=== PATIENT | female | born 1990 | race Caucasian/White ===

== ENCOUNTER 2016-06-25 17:26 | Emergency (ER) | payer OTHER ==
[2016-06-25 17:14] LABS: INFLUENZA A NEG (NEG); INFLUENZA B NEG (NEG)
[2016-06-25 17:25] LABS: URINE APPEARANCE HAZY; URINE BILIRUBIN NEG (NEG); URINE BLOOD TRACE-INTACT (NEG); URINE COLOR YELLOW; URINE KETONE TRACE (NEG); URINE LEUKOCYTE ESTERASE NEG (NEG); URINE NITRATE POS (NEG); URINE PROTEIN TRACE (NEG); URINE SPECIFIC GRAVITY 1.015 (1.003-1.035); URINE UROBILINOGEN 0.2 MG/DL (NORM)
[2016-06-25 17:26] LABS: URINE GLUCOSE 50 MG/DL (NORM)
[~2016-06-25 17:26] MED LIST: ALBUTEROL17 GM INH; BACTRIM DS TABL1 TA1 PO; CIPRO PO; DARVOCET-N 1001 TAB PO; DIFLUCAN PO; HYDROCODON-ACE1 EAC9 PO; IBUPROFEN600 MG PO; MACROBID100 MG PO; MEDROL PO; METHADONE; METHADONE PO; MONISTAT VG; NAPROSYN375 MG PO; NO MEDICATIONS; PHENERGAN PO; PHENERGAN PR; PHENERGAN25 MG PO; PREDNISONE PO; PYRIDIUM PO; PYRIDIUM100 MG PO; ROBITUSSIN15 MG PO; TESSALON PEARLS PO; VOLTAREN50 MG PO; ZITHROMAX PO; ZITHROMAX500 MG PO; ZOFRAN ODT4 MG PO
[2016-06-25 17:27] LABS: MICRO INDICATED? YES
[2016-06-25 17:28] LABS: URINE SOURCE CLEAN CATCH
[2016-06-25 17:29] LABS: CULTURE INDICATED? YES; URINE BACTERIA 4+ (NEG); URINE RBC 0-2 /[HPF] (0-2); URINE SQUAMOUS EPITHELIAL CELL MODERATE /[HPF]
== END 2016-06-25 17:50 | disposition home or self-care (01) ==
LOC: SED 17:26
PROVIDERS: Physician Assistant
DX: J02.9 Acute pharyngitis, unspecified (principal); N30.90 Cystitis, unspecified without hematuria; Z90.49 Acquired absence of other specified parts of digestive tract; F17.210 Nicotine dependence, cigarettes, uncomplicated
CPT/HCPCS: 81003; 84703; 87086; 87088; 87186; 87804; 87880; 99283

== ENCOUNTER 2016-10-05 15:35 | Emergency (ER) | payer OTHER ==
[2016-10-05 16:24] LABS: URINE SOURCE CLEAN CATCH
[2016-10-05 16:31] LABS: URINE APPEARANCE CLOUDY; URINE BILIRUBIN NEG (NEG); URINE BLOOD TRACE (NEG); URINE COLOR YELLOW; URINE GLUCOSE NEG (NEG); URINE KETONE TRACE (NEG); URINE LEUKOCYTE ESTERASE 2+ (NEG); URINE NITRATE NEG (NEG); URINE PROTEIN TRACE (NEG); URINE SPECIFIC GRAVITY 1.029 (1.003-1.035)
[2016-10-05 16:34] LABS: CULTURE INDICATED? YES; URINE BACTERIA AUWI 1+ (NEGATIVE); URINE SQUAMOUS EPITHELIAL CELL FEW /[HPF]; UWBCS1 AUWI 50-100 (0-5)
[2016-10-05 16:49] LABS: U HYALINE CASTS AUWI 0-2 /[LPF]
[2016-10-05 16:50] LABS: URINE MUCUS PRESENT
== END 2016-10-05 17:30 | disposition left against medical advice (07) ==
LOC: CED 15:35
DX: Z53.21 Procedure and treatment not carried out due to patient leaving prior to being seen by health care provider (principal)
CPT/HCPCS: 81003; 84703; 87086

== ENCOUNTER 2016-10-07 17:26 | Emergency (ER) | payer OTHER ==
[2016-10-07 18:24] LABS: URINE SOURCE CLEAN CATCH
[2016-10-07 18:26] LABS: URINE APPEARANCE HAZY; URINE BILIRUBIN NEG (NEG); URINE BLOOD NEG (NEG); URINE COLOR YELLOW; URINE GLUCOSE NEG (NORM); URINE KETONE TRACE (NEG); URINE LEUKOCYTE ESTERASE 2+ (NEG); URINE NITRATE NEG (NEG); URINE PROTEIN NEG (NEG); URINE SPECIFIC GRAVITY >=1.030 (1.003-1.035); URINE UROBILINOGEN 0.2 MG/DL (NORM)
[2016-10-07 18:27] LABS: MICRO INDICATED? YES
[2016-10-07 18:31] LABS: CULTURE INDICATED? YES; URINE BACTERIA 1+ (NEG); URINE MUCUS PRESENT; URINE SQUAMOUS EPITHELIAL CELL MODERATE /[HPF]; URINE TRANSITIONAL EPI CELLS FEW /[HPF]
[2016-10-10 00:13] LABS: CHLAMYDIA TRACH Not Detected (Not Detected); N GONOR Not Detected (Not Detected)
== END 2016-10-07 19:57 | disposition home or self-care (01) ==
LOC: SED 17:26
PROVIDERS: Nurse Practitioner
DX: A59.09 Other urogenital trichomoniasis (principal); Z20.2 Contact with and (suspected) exposure to infections with a predominantly sexual mode of transmission; F31.9 Bipolar disorder, unspecified; F90.9 Attention-deficit hyperactivity disorder, unspecified type; F17.210 Nicotine dependence, cigarettes, uncomplicated; Z90.49 Acquired absence of other specified parts of digestive tract
CPT/HCPCS: 81003; 84703; 87086; 87210; 87491; 87591; 87808; 87905; 96372; 99283; J0696

== ENCOUNTER 2016-11-08 20:03 | Emergency (ER) | payer OTHER ==
[~2016-11-08] VITALS: Ht 165.1 cm; Wt 68.0 kg
[2016-11-08 20:37] LABS: URINE SOURCE CLEAN CATCH
[2016-11-08 20:39] LABS: URINE APPEARANCE CLEAR; URINE BILIRUBIN NEG (NEG); URINE BLOOD NEG (NEG); URINE COLOR YELLOW; URINE GLUCOSE NEG (NORM); URINE KETONE NEG (NEG); URINE LEUKOCYTE ESTERASE NEG (NEG); URINE NITRATE NEG (NEG); URINE PROTEIN NEG (NEG); URINE SPECIFIC GRAVITY 1.025 (1.003-1.035); URINE UROBILINOGEN 0.2 MG/DL (NORM)
[2016-11-08 20:41] LABS: MICRO INDICATED? NO
[2016-11-13 01:42] LABS: CHLAMYDIA TRACH Not Detected (Not Detected); N GONOR Not Detected (Not Detected)
== END 2016-11-08 22:12 | disposition home or self-care (01) ==
LOC: SED 20:03
PROVIDERS: Nurse Practitioner Family
DX: Z20.2 Contact with and (suspected) exposure to infections with a predominantly sexual mode of transmission (principal); Z90.49 Acquired absence of other specified parts of digestive tract
CPT/HCPCS: 81003; 84703; 87210; 87491; 87591; 87808; 87905; 99283